=== PATIENT | female | born 1980 | race Caucasian/White ===

== ENCOUNTER 2018-06-14 15:05 | Emergency (ER) | payer BC ==
[2018-06-14 15:20] VITALS: BP 144/89
--- NOTE | 2018-06-14 16:07 | UC ---
Throat Pain/Nasal Kaden HPI - HPI Summary HPI Summary: Pt c/o URI like symptoms including cough, hoarseness, nasal congestion and malaise X 3 days. Pt also c/o sudden onset of right eye redness and purulent discharge that began today. Pt works at [employer] has known exposure to strep and pink eye - History of Current Complaint Chief Complaint: UCGeneralIllness Stated Complaint: SORE THROAT, AND EYE IRRITATION Time Seen by Provider: 06/14/18 15:45 Hx Obtained From: Patient Hx Last Menstrual Period: 06/02/18 ?: No Onset/Duration: Sudden Onset - right eye c/o, Gradual Onset - uri symptoms Severity: Mild Pain Intensity: 5 Cough: Nonproductive Associated Signs & Symptoms: Positive: Hoarseness - Epiglottits Risk Factors Epiglottis Risk Factors: Negative - Allergies/Home Medications Allergies/Adverse Reactions: Allergies Allergy/AdvReac Type Severity Reaction Status Date / Time No Known Allergies Allergy Verified 06/14/18 15:20 PMH/Surg Hx/FS Hx/Imm Hx Previously Healthy: Yes - Surgical History Surgical History: None - Family History Known Family History: Positive: Cardiac Disease - Social History Occupation: Employed Full-time Lives: With Family Alcohol Use: Occasionally Substance Use Type: None Smoking Status (MU): Current Some Day Smoker Type: Cigarettes Have You Smoked in the Last Year: No Household Exposure Type: Cigarettes - Immunization History Most Recent Influenza Vaccination: no Review of Systems All Other Systems Reviewed And Are Negative: Yes Constitutional: Positive: Fatigue Skin: Positive: Negative Eyes: Positive: Drainage, Eye Redness ENT: Positive: Sinus Congestion Respiratory: Positive: Cough Cardiovascular: Positive: Negative Gastrointestinal: Positive: Negative Genitourinary: Positive: Negative Motor: Positive: Negative Neurovascular: Positive: Negative Musculoskeletal: Positive: Myalgia Neurological: Positive: Negative Psychological: Positive: Negative Is Patient Immunocompromised?: No Physical Exam Triage Information Reviewed: Yes Appearance: Ill-Appearing Vital Signs: Initial Vital Signs Temp 98.2 F 06/14/18 15:16 Pulse 108 06/14/18 15:16 Resp 18 06/14/18 15:16 BP 144/89 06/14/18 15:16 Pulse Ox 100 06/14/18 15:16 Vital Signs Reviewed: Yes Eyes: Positive: Conjunctiva Inflamed, Discharge ENT Exam: Normal ENT: Positive: Nasal congestion, Hoarse voice Dental Exam: Normal Neck exam: Normal Respiratory Exam: Normal Throat Pain/Nasal Course/Dx - Differential Dx/Diagnosis Differential Diagnosis/HQI/PQRI: Influenza, Pharyngitis, URI Provider Diagnosis: Conjunctivitis, right eye, Viral syndrome, Laryngitis Discharge - Sign-Out/Discharge Documenting (check all that apply): Patient Departure All imaging exams completed and their final reports reviewed: No Studies - Discharge Plan Condition: Stable Disposition: HOME Prescriptions: Polymyx/Trimethoprim OPTH* [Polytrim OPHTH*] 2 drop RIGHT EYE Q6H 7 Days #1 btl predniSONE [Prednisone 20 MG TAB] 20 mg PO DAILY #5 tablet Patient Education Materials: Laryngitis (ED), Conjunctivitis (ED) Forms: *Work Release Referrals: Shelby Ferrer MD [Primary Care Provider] - If Needed - Billing Disposition and Condition Condition: STABLE Disposition: Home
== END 2018-06-14 16:27 | disposition home or self-care (01) ==
LOC: UCEAST 15:05
DX: H10.9 Unspecified conjunctivitis (principal); B34.9 Viral infection, unspecified; J04.0 Acute laryngitis; F17.210 Nicotine dependence, cigarettes, uncomplicated
CPT/HCPCS: 99212; G0463

== ENCOUNTER 2018-07-18 10:51 | Emergency (ER) | payer BC ==
[2018-07-18 12:07] VITALS: BP 133/74
[2018-07-18 12:18] LABS: Influenza A Molecular POSITIVE (Negative)
--- NOTE | 2018-07-18 12:25 | UC ---
Respiratory Complaint HPI - HPI Summary HPI Summary: cough x 1 day cough is dry , fever, chills, body aches no runny nose , no sore throat - History of Current Complaint Chief Complaint: UCRespiratory Stated Complaint: COUGH, FEVER Time Seen by Provider: 07/18/18 12:15 Hx Obtained From: Patient Hx Last Menstrual Period: 3 weeks ago ?: No Onset/Duration: Sudden Onset, Lasting Days - 1, Still Present Timing: Constant Severity Initially: Moderate Severity Currently: Moderate Pain Intensity: 0 Character: Cough: Nonproductive Aggravating Factors: Exertion, Deep Breaths Associated Signs And Symptoms: Positive: Fever, Chills. Negative: Wheezing - Allergies/Home Medications Allergies/Adverse Reactions: Allergies Allergy/AdvReac Type Severity Reaction Status Date / Time No Known Allergies Allergy Verified 07/18/18 12:01 Home Medications: Home Medications Ibuprofen TAB* [Advil TAB*] 400 mg PO Q6H PRN 07/18/18 [History Confirmed ] PMH/Surg Hx/FS Hx/Imm Hx Previously Healthy: Yes - Surgical History Surgical History: None - Family History Known Family History: Positive: None, Cardiac Disease - Social History Alcohol Use: Occasionally Substance Use Type: None Smoking Status (MU): Light Every Day Tobacco Smoker Type: Cigarettes Have You Smoked in the Last Year: No Household Exposure Type: Cigarettes - Immunization History Most Recent Influenza Vaccination: no Review of Systems All Other Systems Reviewed And Are Negative: Yes Constitutional: Positive: Fever, Chills, Fatigue Skin: Positive: Negative Eyes: Positive: Negative ENT: Negative: Sore Throat Respiratory: Positive: Cough Musculoskeletal: Positive: Arthralgia, Myalgia Is Patient Immunocompromised?: No Physical Exam Triage Information Reviewed: Yes Appearance: Well-Appearing, No Pain Distress, Well-Nourished Vital Signs: Initial Vital Signs Temp 99.1 F 07/18/18 12:02 Pulse 116 07/18/18 12:02 Resp 20 07/18/18 12:02 BP 133/74 07/18/18 12:02 Pulse Ox 99 07/18/18 12:02 Vital Signs Reviewed: Yes Eye Exam: Normal Eyes: Positive: Conjunctiva Clear ENT: Positive: Normal ENT inspection, Hearing grossly normal, Pharynx normal, TMs normal. Negative: Pharyngeal erythema, Nasal congestion, Nasal drainage Neck: Positive: Supple, Nontender, No Lymphadenopathy Respiratory: Positive: Chest non-tender, Lungs clear, Normal breath sounds Cardiovascular: Positive: Tachycardia Abdominal Exam: Normal Skin Exam: Normal Respiratory Course/Dx - Differential Dx/Diagnosis Provider Diagnosis: Influenza A Discharge - Sign-Out/Discharge Documenting (check all that apply): Patient Departure All imaging exams completed and their final reports reviewed: No Studies - Discharge Plan Condition: Stable Disposition: HOME Prescriptions: Oseltamivir Phosphate [Tamiflu] 75 mg PO BID #10 capsule Patient Education Materials: Influenza (ED) Forms: *Work Release Referrals: Shelby Ferrer MD [Primary Care Provider] - If Needed - Billing Disposition and Condition Condition: STABLE Disposition: Home
== END 2018-07-18 12:25 | disposition home or self-care (01) ==
LOC: UCCORT 10:51
DX: J10.1 Influenza due to other identified influenza virus with other respiratory manifestations (principal); F17.210 Nicotine dependence, cigarettes, uncomplicated
CPT/HCPCS: 99212; G0463

== ENCOUNTER 2019-06-20 12:41 | Emergency (ER) | payer BC ==
[2019-06-20 13:13] VITALS: BP 142/94
[2019-06-20 13:54] LABS: Influenza A Molecular Negative (Negative); Influenza B Molecular Negative (Negative)
--- NOTE | 2019-06-20 14:21 | UC ---
FLU HPI - HPI Summary HPI Summary: Patient is a 38yo female presenting with headache and fever of 102.5 that began this morning when she woke up. Patient states she has had 2 doses of ibuprofen since waking up which has relieved most of her headache but she still has a dull ache. States it also relieved her fever. Notes mild nasal congestion. Denies sore throat and cough. Denies nausea and vomiting. 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 Also notes exposure to strep throat last week. Would like testing for both. - History of Current Complaint Chief Complaint: UCGeneralIllness Stated Complaint: FLU LIKE SYMPTOMS Hx Obtained From: Patient Hx Last Menstrual Period: 06/16/19 Pain Intensity: 2 - Allergy/Home Medications Allergies/Adverse Reactions: Allergies Allergy/AdvReac Type Severity Reaction Status Date / Time No Known Allergies Allergy Verified 06/20/19 13:10 Home Medications: Home Medications Ibuprofen TAB* [Advil TAB*] 600 mg PO Q6H PRN 07/18/18 [History Confirmed ] Multivitamin [Multivitamins] 1 tab PO DAILY 06/20/19 [History Confirmed 06/20/19 ] Naproxen Sodium [Aleve] 440 mg PO ONCE PRN 06/20/19 [History Confirmed 06/20/19] Oseltamivir CAP* [Tamiflu CAP*] 75 mg PO BID #10 cap 06/20/19 [Rx] PMH/Surg Hx/FS Hx/Imm Hx Previously Healthy: Yes - Surgical History Surgical History: None - Family History Known Family History: Positive: None, Cardiac Disease - Social History Alcohol Use: Occasionally Substance Use Type: None Smoking Status (MU): Former Smoker Type: Cigarettes Length of Time of Smoking/Using Tobacco: three month Have You Smoked in the Last Year: No Household Exposure Type: Cigarettes - Immunization History Most Recent Influenza Vaccination: no Review of Systems All Other Systems Reviewed And Are Negative: Yes Constitutional: Positive: Fever ENT: Positive: Sinus Congestion Respiratory: Positive: Negative Cardiovascular: Positive: Negative Gastrointestinal: Positive: Negative Musculoskeletal: Positive: Negative Neurological/Mental Status: Positive: Headache Physical Exam - Summary Physical Exam Summary: Vital Signs Reviewed: Yes A+Ox3, no distress Eyes: Conjunctiva Clear ENT: Hearing grossly normal, TM x 2 clear, moist, uvula midline, no exudate, no erythema Neck: Positive: Supple Respiratory: Positive: No respiratory distress, No accessory muscle use + CTA throughout no w/r Cardiovascular: RRR nl s1, s2 no m/r Musculoskeletal Exam: HURTADO x 4 without difficulty Neurological: Positive: Alert Psychological: Positive: age appropriate behavior Skin: Positive: no rash, no ecchymosis Vital Signs: Initial Vital Signs Temp 98.3 F 06/20/19 13:07 Pulse 64 06/20/19 13:07 Resp 20 06/20/19 13:07 BP 142/94 06/20/19 13:07 Pulse Ox 100 06/20/19 13:07 Lab Results 06/20/19 06/20/19 Range/Units 13:42 14:17 Influenza A (Rapid) Negative (Negative) Influenza B (Rapid) Negative (Negative) Group A Strep Rapid Negative (Negative) Flu Course/Dx - Course Course Of Treatment: Negative rapid strep and flu test. Educated patient on viral illness. I offered patient treatment with Tamiflu based on symptoms and exposure to influenza. Patient states she prefers to take Tamiflu at this time. Patient also requested some Tylenol for her dull headache which she received. Instructed to follow up with PCP for any new or worsening symptoms. Patient was understanding and agreed with the treatment plan. - Differential Dx/Diagnosis Differential Diagnosis/HQI/PQRI: Influenza, Upper Respiratory Infection Provider Diagnosis: Flu-like symptoms Discharge ED - Sign-Out/Discharge Documenting (check all that apply): Patient Departure All imaging exams completed and their final reports reviewed: No Studies - Discharge Plan Condition: Stable Disposition: HOME Prescriptions: Oseltamivir CAP* [Tamiflu CAP*] 75 mg PO BID #10 cap Patient Education Materials: Viral Syndrome (ED) Forms: *Work Release Referrals: Shelby Ferrer MD [Primary Care Provider] - If Needed Additional Instructions: As discussed, you tested negative for influenza today but will be treated based on symptoms and exposure. You also tested negative for strep throat. Take tamiflu as prescribed. You may continue with motrin and tylenol as directed for fever and pain relief. Get plenty of rest and increase your fluid intake. Follow up with your primary care provider if symptoms do not improve within 7 days. - Billing Disposition and Condition Condition: STABLE Disposition: Home
[2019-06-20] MEDS ORDERED: Acetaminophen TAB* 325 MG PO ONE (14:32)
== END 2019-06-20 14:36 | disposition home or self-care (01) ==
LOC: UCEAST 12:41
DX: R51 Headache (principal); R50.9 Fever, unspecified; R09.81 Nasal congestion; Z87.891 Personal history of nicotine dependence
CPT/HCPCS: 87651; 99212; A9270-GY; G0463